=== PATIENT | male | born 1955 ===

== ENCOUNTER 2022-04-20 14:18 | Inpatient (IN) | payer MEDICARE ==
[~2022-04-20] VITALS: Ht 182.9 cm; Wt 99.3 kg
[2022-04-20] MEDS ORDERED: ACETAMINOPHEN 325 MG TABLET PO PRN (14:30)
[2022-04-20] MEDS ORDERED: MAGNESIUM HYDROXIDE 30 ML LIQUID UDC PO PRN (14:30)
--- NOTE | 2022-04-20 14:48 | NUR ---
Admission Note: Admitted a case of 67 years old male from [facility] with history of COPD, GERD, Overactive bladder, Anxiety, Osteoarthritis. Patient is on 5150 status hold. Patient arrived in a stretcher accompanied by EMT. Initial report given by Yessica ADAN. On admission patient was cooperative to physical assessment and vital signs. Skin body revealed no significant skin breakdown. Patient ambulates without assistance. Upon face to face patient appeared alert, oriented to person and place, anxious, demanding. Patient denies any suicidal or homicidal ideations nor any hallucinations or delusions at this moment. Patient was offered brief orientation to unit rules and policies and given copy of patient's rights handbook. Patient belongings were accounted and contrabands removed. Psychiatrist Dr. Henson and Medical physician Juarez were informed and orders were carried out. Patient is encourage to verbalize concerns. Fall and safety precautions implemented.
[2022-04-20] MEDS ORDERED: BLOOD SUGAR DIAGNOSTIC 1 EACH STRIP VI ONE (15:30)
[2022-04-20] MEDS ORDERED: CLON0.5T4 PO (15:37)
[2022-04-20] MEDS ORDERED: ACET-2154 PO (15:37)
[2022-04-20] MEDS ORDERED: OLAN20TA3 PO (15:37)
[2022-04-20] MEDS ORDERED: MELA3TAB41 PO (15:37)
[2022-04-20] MEDS ORDERED: ZOLP5TAB8 PO (15:37)
[2022-04-20] MEDS ORDERED: DIVA500T2 PO (15:37)
[2022-04-20] MEDS ORDERED: MAGN400O6 PO (15:37)
[2022-04-20] MEDS ORDERED: BISA10SU61 RC (15:37)
[2022-04-20] MEDS ORDERED: OLAN10TA3 PO (15:37)
[2022-04-20] MEDS ORDERED: LITH300C2 PO (15:37)
[2022-04-20] MEDS ORDERED: PANT40TA2 PO (15:37)
[2022-04-20] MEDS ORDERED: VITA1TAB20 PO (15:37)
[2022-04-20] MEDS ORDERED: BACL10TA PO (15:37)
[2022-04-20] MEDS ORDERED: LORA2TAB95 PO (15:37)
[2022-04-20 15:57] VITALS: BP 128/99
[2022-04-20 20:12] VITALS: BP 132/90
--- NOTE | 2022-04-20 20:55 | NUR ---
GPS: Received patient lying in bed. alert and oriented ambulatory. calm and cooperative. no agitation noted. compliant with medication. continue plan of care.
[2022-04-20] MEDS: ZOLPIDEM 5 MG TABLET PO PRN (21:53)
--- NOTE | 2022-04-21 00:36 | NUR ---
patient is calm now. prn effective for anxiety.
--- NOTE | 2022-04-21 06:27 | NUR ---
GPS: Remain calm and cooperative with meds and care. slept 6.30 hrs through the night after took sleeping meds. resting in bed comfortably. no agitation noted. continue plan of care.
[2022-04-21 07:30] VITALS: BP 122/87
[2022-04-21 09:58] LABS: HEMATOCRIT 43.9 % (36.7-47.1); MEAN CORPUSCULAR HEMOGLOBIN 30.6 uug (23.8-33.4); MEAN CORPUSCULAR VOLUME 91.3 fL (73.0-96.2); PLATELET COUNT (AUTO) 292 K/uL (152-348)
[2022-04-21] MEDS ORDERED: MAGNESIUM HYDROXIDE 30 ML LIQUID UDC PO PRN (10:45)
[2022-04-21] MEDS ORDERED: BISACODYL 10 MG SUPP.RECT RC PRN (10:45)
[2022-04-21 12:18] LABS: POTASSIUM 4.6 mmol/L (3.5-5.1)
[2022-04-21] MEDS: ACETAMINOPHEN 325 MG TABLET PO PRN ×2 (12:57→18:59)
--- NOTE | 2022-04-21 13:30 | NUR ---
KAYLA initial discharge note: Patient currently resides at [facility] [id number] ([phone]). Patient states that he would want to return to [facility] [id number] ([phone]) at discharge. KAYLA will work with patient and MD to ensure a safe and proper discharge plan.
--- NOTE | 2022-04-21 13:44 | NUR ---
Firearms Report: Forestry Technician completed and submitted a [employer] firearms report for 5150 danger to self certifications. A copy of report has been placed in patient chart.
[2022-04-21 15:24] VITALS: BP 115/80
[2022-04-21] MEDS: DIVALPROEX ER 250 MG TAB.SR.24H PO SCH (16:43)
[2022-04-21] MEDS: CLONAZEPAM 0.5 MG TABLET PO SCH (16:43)
[2022-04-21] MEDS: DIVALPROEX ER 500 MG TAB.SR.24H PO SCH (20:13)
[2022-04-21] MEDS: OLANZAPINE 5 MG TABLET PO SCH (20:13)
[2022-04-21 20:18] VITALS: BP 110/64
--- NOTE | 2022-04-21 21:00 | NUR ---
GPS: Received Patient alert and oriented x4,ambulatory.patient is in depressed mood and sad affect, needs prompting to participate in therapeutic groups, forgetful at times, low energy level, assisted with ADL's, denies SI @ this time. patient unable to formulate a viable plan for self care, compliant with meds. continue to monitor for safety, continue with treatment plan.
[2022-04-21] MEDS: ZOLPIDEM 5 MG TABLET PO PRN (21:33)
[2022-04-21] MEDS: LORAZEPAM 1 MG TABLET PO PRN (23:35)
--- NOTE | 2022-04-21 23:36 | NUR ---
patient c/o anxiety ativan 1 mg po given.
--- NOTE | 2022-04-22 00:36 | NUR ---
patient is calm now. prn for anxiety effective.
--- NOTE | 2022-04-22 05:45 | NUR ---
GPS: Remain calm and cooperative with meds and care. resting in bed comfortably. no agitation noted. continue plan of care
[2022-04-22] MEDS: PANTOPRAZOLE SODIUM 40 MG TABLET.DR PO SCH (06:05)
--- NOTE | 2022-04-22 06:22 | NUR ---
GPS: slept 3.45 hrs through the night.
[2022-04-22 07:30] VITALS: BP 99/60
[2022-04-22] MEDS: OLANZAPINE 5 MG TABLET PO SCH ×2 (08:30→20:09)
[2022-04-22] MEDS: DIVALPROEX ER 250 MG TAB.SR.24H PO SCH (08:30)
[2022-04-22] MEDS: CLONAZEPAM 0.5 MG TABLET PO SCH ×2 (08:30→16:59)
[2022-04-22] MEDS: VITAMIN B COMPLEX 1 TABLET PO SCH (08:31)
[2022-04-22] MEDS ORDERED: DIVALPROEX ER 250 MG TAB.SR.24H PO SCH (09:00)
[2022-04-22] MEDS: LORAZEPAM 1 MG TABLET PO PRN (11:23)
[2022-04-22] MEDS: MAG HYDROX/AL HYDROX/SIMETH 30 ML LIQUID UDC PO PRN (13:39)
--- NOTE | 2022-04-22 14:44 | NUR ---
Patient is calm, cooperative, sociable, likes to play astrid with peers, compliant with medications. Pt. denies SI. Patient is given Ativan 1 mg at 11:23 for anxiety, effective. Patient is given Maalox 30 ml at 13:39 for upset stomach, effective. Self care. Patient is encourage to verbalize concerns. Fall and safety precautions implemented.
[2022-04-22] MEDS: REMEDY ESSENTIAL ZINC PASTE 113 GM TOP SCH ×2 (15:30→20:10)
[2022-04-22 16:00] VITALS: BP 108/73
[2022-04-22] MEDS: ACETAMINOPHEN 325 MG TABLET PO PRN (16:59)
[2022-04-22 20:00] VITALS: BP 105/76
[2022-04-22] MEDS: DIVALPROEX ER 500 MG TAB.SR.24H PO SCH (20:09)
[2022-04-22] MEDS: ZOLPIDEM 5 MG TABLET PO PRN (21:32)
--- NOTE | 2022-04-22 23:00 | NUR ---
GPS: Received Patient alert and oriented x4,ambulating in the hallway. patient is in depressed mood and sad affect stated i am sad and i am unable to sleep. forgetful at times, low energy level, assisted with ADL's, denies SI @ this time. patient unable to formulate a viable plan for self care, compliant with meds. continue to monitor for safety, continue with treatment plan.
[2022-04-23] MEDS: ACETAMINOPHEN 325 MG TABLET PO PRN ×2 (00:29→14:26)
--- NOTE | 2022-04-23 00:29 | NUR ---
patient c/o gen: pain. tylenol 650 mg po given.
--- NOTE | 2022-04-23 01:00 | NUR ---
tylenol for mild pain effective, patient resting in bed comfortably.
--- NOTE | 2022-04-23 05:47 | NUR ---
remain calm and cooperative with meds and care. sleeping in bed comfortably. continue plan of care.
[2022-04-23] MEDS: PANTOPRAZOLE SODIUM 40 MG TABLET.DR PO SCH (06:02)
[2022-04-23 07:30] VITALS: BP 115/84
[2022-04-23] MEDS: VITAMIN B COMPLEX 1 TABLET PO SCH (08:34)
[2022-04-23] MEDS: DIVALPROEX ER 250 MG TAB.SR.24H PO SCH (08:34)
[2022-04-23] MEDS: CLONAZEPAM 0.5 MG TABLET PO SCH ×2 (08:34→16:54)
[2022-04-23] MEDS: OLANZAPINE 5 MG TABLET PO SCH ×2 (08:35→20:33)
[2022-04-23] MEDS: REMEDY ESSENTIAL ZINC PASTE 113 GM TOP SCH ×2 (08:35→20:35)
[2022-04-23] MEDS: LORAZEPAM 1 MG TABLET PO PRN ×2 (10:51→20:36)
[2022-04-23] MEDS: MAG HYDROX/AL HYDROX/SIMETH 30 ML LIQUID UDC PO PRN (11:27)
--- NOTE | 2022-04-23 15:41 | NUR ---
Received Patient is awake and responding x4, depressed mood and sad affect, needs prompting to participate in therapeutic groups, forgetful at times, low energy level, assisted with ADL's, denies SI.unable to formulate a viable plan for self care, continue to monitor for safety, continue with treatment plan.
[2022-04-23 16:00] VITALS: BP 109/73
[2022-04-23 20:14] VITALS: BP 116/76
[2022-04-23] MEDS: DIVALPROEX ER 500 MG TAB.SR.24H PO SCH (20:33)
[2022-04-23] MEDS: ZOLPIDEM 5 MG TABLET PO PRN (21:02)
[2022-04-24] MEDS: PANTOPRAZOLE SODIUM 40 MG TABLET.DR PO SCH (07:00)
[2022-04-24 07:30] VITALS: BP 112/71
[2022-04-24] MEDS: CLONAZEPAM 0.5 MG TABLET PO SCH ×2 (08:46→17:40)
[2022-04-24] MEDS: OLANZAPINE 5 MG TABLET PO SCH ×2 (08:46→20:32)
[2022-04-24] MEDS: DIVALPROEX ER 250 MG TAB.SR.24H PO SCH (08:46)
[2022-04-24] MEDS: VITAMIN B COMPLEX 1 TABLET PO SCH (08:48)
[2022-04-24] MEDS: REMEDY ESSENTIAL ZINC PASTE 113 GM TOP SCH ×2 (08:49→20:35)
[2022-04-24] MEDS: LORAZEPAM 1 MG TABLET PO PRN ×2 (10:56→23:12)
[2022-04-24] MEDS: ESCITALOPRAM OXALATE 10 MG TABLET PO SCH (10:56)
[2022-04-24] MEDS: GABAPENTIN 100 MG CAPSULE PO SCH ×3 (10:57→17:40)
[2022-04-24] MEDS: ACETAMINOPHEN 325 MG TABLET PO PRN (11:58)
[2022-04-24 15:38] VITALS: BP 100/59
[2022-04-24 20:11] VITALS: BP 100/70
[2022-04-24] MEDS: DIVALPROEX ER 500 MG TAB.SR.24H PO SCH (20:32)
[2022-04-24] MEDS: ZOLPIDEM 5 MG TABLET PO PRN (20:32)
[2022-04-25] MEDS: PANTOPRAZOLE SODIUM 40 MG TABLET.DR PO SCH (06:13)
[2022-04-25 07:30] VITALS: BP 112/75
[2022-04-25] MEDS ORDERED: ZOLPIDEM 5 MG TABLET PO PRN (09:15)
[2022-04-25] MEDS: GABAPENTIN 100 MG CAPSULE PO SCH ×3 (09:18→16:26)
[2022-04-25] MEDS: DIVALPROEX ER 250 MG TAB.SR.24H PO SCH (09:18)
[2022-04-25] MEDS: ESCITALOPRAM OXALATE 10 MG TABLET PO SCH (09:18)
[2022-04-25] MEDS: CLONAZEPAM 0.5 MG TABLET PO SCH ×2 (09:18→16:26)
[2022-04-25] MEDS: OLANZAPINE 5 MG TABLET PO SCH ×2 (09:18→20:12)
[2022-04-25] MEDS: VITAMIN B COMPLEX 1 TABLET PO SCH (09:19)
[2022-04-25] MEDS: REMEDY ESSENTIAL ZINC PASTE 113 GM TOP SCH ×2 (09:19→20:13)
--- NOTE | 2022-04-25 15:52 | NUR ---
Patient is isolative, calm, depressed, cooperative with nursing care and compliant with medications. A/O X 3 to person, place, situation. Self care. Pt. is encourage to verbalize concerns. Fall and safety precautions implemented.
[2022-04-25 16:53] VITALS: BP 132/93
[2022-04-25 20:05] VITALS: BP 103/68
[2022-04-25] MEDS: DIVALPROEX ER 500 MG TAB.SR.24H PO SCH (20:12)
[2022-04-25] MEDS: MELATONIN 3 MG TABLET PO SCH (20:12)
[2022-04-25] MEDS: LORAZEPAM 1 MG TABLET PO PRN (23:23)
--- NOTE | 2022-04-26 03:53 | NUR ---
GPS NOTES: Patient received awake, A&Ox3. Denies SI and contract safety w/ the headline writer. He is able to to make needs known. He is compliant w/ treatments and medications plans. He is complaining of trouble sleeping, PRN's medications ineffective. Offered non-pharmacological management to sleep, still ineffective. Frequent monitoring observed and safety strategies in place.
[2022-04-26] MEDS: ACETAMINOPHEN 325 MG TABLET PO PRN (04:37)
[2022-04-26] MEDS: PANTOPRAZOLE SODIUM 40 MG TABLET.DR PO SCH (06:18)
[2022-04-26 07:30] VITALS: BP 106/79
[2022-04-26] MEDS: VITAMIN B COMPLEX 1 TABLET PO SCH (09:00)
[2022-04-26] MEDS: DIVALPROEX ER 250 MG TAB.SR.24H PO SCH (09:23)
[2022-04-26] MEDS: CLONAZEPAM 0.5 MG TABLET PO SCH ×2 (09:23→16:02)
[2022-04-26] MEDS: GABAPENTIN 100 MG CAPSULE PO SCH ×3 (09:23→16:02)
[2022-04-26] MEDS: ESCITALOPRAM OXALATE 10 MG TABLET PO SCH (09:23)
[2022-04-26] MEDS: REMEDY ESSENTIAL ZINC PASTE 113 GM TOP SCH ×2 (09:24→21:19)
[2022-04-26] MEDS: OLANZAPINE 5 MG TABLET PO SCH ×2 (09:24→20:18)
[2022-04-26 16:00] VITALS: BP 105/69
[2022-04-26] MEDS: HYDROXYZINE PAMOATE 25 MG CAPSULE PO PRN ×2 (16:02→22:15)
--- NOTE | 2022-04-26 17:56 | NUR ---
Pt was compliant and responding appropriately when spoken to. Is needy and attention seeking at times. Set boundaries.
[2022-04-26] MEDS: DIVALPROEX ER 500 MG TAB.SR.24H PO SCH (20:18)
[2022-04-26] MEDS: MELATONIN 3 MG TABLET PO SCH (20:18)
[2022-04-26] MEDS ORDERED: AMITRIPTYLINE HCL 50 MG TABLET PO SCH (21:00)
--- NOTE | 2022-04-26 21:00 | NUR ---
RECEIVED PATIENT IN THE DAYROOM PLAYING CRISTINA WITH OTHER CLIENTS. HE IS NOTED A/O X 3 ABLE TO VERBALIZED HIS FEELINGS. PATIENT IS NOTED SARCASTIC AT TIMES, HYPERVERBAL AND ATTENTION SEEKER. HE DENIED SI/HI/AH/VH. HE IS ABLE TO CONTRACT FOR SAFETY. HE IS ABLE TO COMPLY WITH HIS MEDICATION REGIMENT DIET AND CARE. HE IS REASSURED FOR HIS SAFETY. HIS V/S ARE STABLE, HE IS IN NO DISTRESS. PO FLUIDS AND SNACKS WERE GIVEN. WILL CONTINUE TO MONITOR.
[2022-04-26 21:07] VITALS: BP 110/65
[2022-04-27] MEDS: ACETAMINOPHEN 325 MG TABLET PO PRN (01:05)
[2022-04-27] MEDS: PANTOPRAZOLE SODIUM 40 MG TABLET.DR PO SCH (06:28)
[2022-04-27 07:30] VITALS: BP 113/62
[2022-04-27] MEDS: GABAPENTIN 100 MG CAPSULE PO SCH ×3 (08:32→16:51)
[2022-04-27] MEDS: VITAMIN B COMPLEX 1 TABLET PO SCH (08:32)
[2022-04-27] MEDS: CLONAZEPAM 0.5 MG TABLET PO SCH ×2 (08:32→16:51)
[2022-04-27] MEDS: OLANZAPINE 5 MG TABLET PO SCH ×2 (08:32→20:25)
[2022-04-27] MEDS: DIVALPROEX ER 250 MG TAB.SR.24H PO SCH (08:32)
[2022-04-27] MEDS: ESCITALOPRAM OXALATE 10 MG TABLET PO SCH (08:35)
[2022-04-27] MEDS: REMEDY ESSENTIAL ZINC PASTE 113 GM TOP SCH ×2 (08:37→20:27)
[2022-04-27] MEDS: HYDROXYZINE PAMOATE 25 MG CAPSULE PO PRN ×2 (12:48→22:41)
--- NOTE | 2022-04-27 12:50 | NUR ---
Vistaril 25 mg is given at 12:48 for anxiety, will be monitored for effectiveness.
--- NOTE | 2022-04-27 16:00 | NUR ---
Patient is cooperative, talkative, sociable, compliant with medications. A/O X 4 to person, place, situation. Self care. Denies SI. Pt. is encourage to verbalize concerns. Fall and safety precautions implemented.
[2022-04-27 16:27] VITALS: BP 106/77
[2022-04-27] MEDS: AMITRIPTYLINE HCL 50 MG TABLET PO SCH (20:25)
[2022-04-27] MEDS: DIVALPROEX ER 500 MG TAB.SR.24H PO SCH (20:26)
[2022-04-27 20:27] VITALS: BP 99/63
[2022-04-27] MEDS: MELATONIN 3 MG TABLET PO SCH (20:27)
--- NOTE | 2022-04-27 21:00 | NUR ---
RECEIVED PATIENT IN HUS ROOM PLAYING SITTING IN HIS BED. HE IS NOTED A/O X 3 ABLE TO VERBALIZED HIS FEELINGS. PATIENT CONTINUE HYPERVERBAL AND ATTENTION SEEKER. HE DENIED SI/HI/AH/VH. HE STATED, "I TOLD YOU I WAS NEVER SUICIDAL. I DON'T WANT TO HURT ANYONE". HE IS ABLE TO CONTRACT FOR SAFETY. HE IS ABLE TO COMPLY WITH HIS MEDICATION REGIMENT DIET AND CARE. HE IS REASSURED FOR HIS SAFETY. SAFETY AND FALL PRECAUTIONS ARE IN PLACE. HIS V/S ARE STABLE, HE IS IN NO DISTRESS. PO FLUIDS AND SNACKS WERE GIVEN. WILL CONTINUE TO MONITOR.
--- NOTE | 2022-04-28 00:05 | NUR ---
PATIENT CAME TO THE NURSING STATION. HE STATED, "I STILL CAN'T SLEEP". HE REQUESTED TO GO TO THE DAY ROOM AND WATCH TV. PATIENT WAS DISCOARED FROM GOING TO THE DAY ROOM AND OR WATCH TV THIS WILL PROMOTE TO STAY AWAKE. HE WAS TOLD TO STAY IN HIS ROOM IN BED AND CONTINUE TO TRY TO FALL ASLEEP. PATIENT NOTED IRRITABLE AND SARCASTIC BUT AGREED TO DO THAT. WILL CONTINUE TO MONITOR.
--- NOTE | 2022-04-28 06:06 | NUR ---
Patient slept for approx 4.5 hrs through the night. He continue denying SI. he is able to verbally CFS.
[2022-04-28] MEDS: PANTOPRAZOLE SODIUM 40 MG TABLET.DR PO SCH (06:45)
[2022-04-28 07:30] VITALS: BP 124/92
[2022-04-28] MEDS: CLONAZEPAM 0.5 MG TABLET PO SCH ×2 (08:25→16:54)
[2022-04-28] MEDS: ESCITALOPRAM OXALATE 10 MG TABLET PO SCH (08:25)
[2022-04-28] MEDS: VITAMIN B COMPLEX 1 TABLET PO SCH (08:25)
[2022-04-28] MEDS: DIVALPROEX ER 250 MG TAB.SR.24H PO SCH (08:25)
[2022-04-28] MEDS: GABAPENTIN 100 MG CAPSULE PO SCH ×3 (08:25→16:54)
[2022-04-28] MEDS: OLANZAPINE 5 MG TABLET PO SCH ×2 (08:25→21:06)
[2022-04-28] MEDS: REMEDY ESSENTIAL ZINC PASTE 113 GM TOP SCH ×2 (08:26→21:07)
[2022-04-28] MEDS: HYDROXYZINE PAMOATE 25 MG CAPSULE PO PRN (14:22)
--- NOTE | 2022-04-28 14:33 | NUR ---
Patient is cooperative, restless, compliant with medications. A/O X 4 to person, place, environment. Vistaril 25 mg is given at 14:22 for anxiety, will be monitored for effectiveness. Active listening provided. Fall and safety precautions implemented.
--- NOTE | 2022-04-28 15:47 | NUR ---
KAYLA Discharge Plan: Pt will be discharged to [facility] located at [address] [place] [id number] ([phone]) via Ambulance transportation at 11AM. KAYLA spoke with admin coordinator, Alley at the facility who states they are ready to accept the patient today. Pt is aware and agreeable with discharge plan. Pt does not have a automotive salesperson at this time. Pt is alert and oriented x4, is unable to plan for self-care at this time. However, pt is willing to accept care at his returning SNF. Pt denies any suicidal or homicidal ideation. Pt will follow-up at the facility with Psychiatrist, Dr. Henson ([phone]) and Roll Handler, Dr. Velasco. Pt presents with calm mood and congruent affect. PHARMACY: [facility] ([phone]) [id number] [facility] [address].
[2022-04-28 16:51] VITALS: BP 104/72
[2022-04-28] MEDS: ACETAMINOPHEN 325 MG TABLET PO PRN (16:54)
--- NOTE | 2022-04-28 16:55 | NUR ---
Tylenol 650 mg is given at 16:54, will be monitored for effectiveness.
[2022-04-28 19:50] VITALS: BP 118/70
[2022-04-28] MEDS: MELATONIN 3 MG TABLET PO SCH (21:06)
[2022-04-28] MEDS: DIVALPROEX ER 500 MG TAB.SR.24H PO SCH (21:06)
[2022-04-28] MEDS: AMITRIPTYLINE HCL 50 MG TABLET PO SCH (21:06)
--- NOTE | 2022-04-28 22:01 | NUR ---
received patient in his room in bed sleeping but easily arousable. He is noted A/o x 3 calm and pleasant upon approached. He is able to verbalized his feelings, he denied SI/HI/VH/AH. he is able to verbally CFS. He is aware and agreeable with his impending discharged tomorrow morning. His V/S are stable, he is in no distress, patient was given PO fluids and snacks. Safety and fall precautions are in place. he is reassured for his safety. will continue to monitor.
[2022-04-29] MEDS: PANTOPRAZOLE SODIUM 40 MG TABLET.DR PO SCH (06:41)
--- NOTE | 2022-04-29 07:01 | NUR ---
Patient slept for approx 3 hrs through the night. He is aware and agreeable with his discharge. will continue to monitor.
[2022-04-29 07:47] VITALS: BP 94/63
[2022-04-29] MEDS: ESCITALOPRAM OXALATE 10 MG TABLET PO SCH (08:25)
[2022-04-29] MEDS: GABAPENTIN 100 MG CAPSULE PO SCH (08:25)
[2022-04-29] MEDS: VITAMIN B COMPLEX 1 TABLET PO SCH (08:25)
[2022-04-29] MEDS: OLANZAPINE 5 MG TABLET PO SCH (08:25)
[2022-04-29] MEDS: CLONAZEPAM 0.5 MG TABLET PO SCH (08:25)
[2022-04-29] MEDS: DIVALPROEX ER 250 MG TAB.SR.24H PO SCH (08:25)
[2022-04-29] MEDS: REMEDY ESSENTIAL ZINC PASTE 113 GM TOP SCH (08:26)
--- NOTE | 2022-04-29 11:20 | NUR ---
Received orders to discharge this patient to [facility] by [facility]. Patient denies SI/HI AH/VH, SOB, pain or any discomfort. Patient is A/O X 4 to person, place situation. Patient is cooperative with care, compliant with medications. Patient was agreeable with discharge plans and signed all discharge documentation. Patient did not have any belongings. Emotional support provided. Fall and safety precautions implemented.
== END 2022-04-29 11:25 | DRG 885 ==
LOC: GPS 14:18
PROVIDERS: ADMIT Psychiatry & Neurology Psychiatry; ATTEND Nurse Practitioner Acute Care
DX: F31.5 Bipolar disorder, current episode depressed, severe, with psychotic features (principal); J44.9 Chronic obstructive pulmonary disease, unspecified; Z73.6 Limitation of activities due to disability; F41.9 Anxiety disorder, unspecified; K21.9 Gastro-esophageal reflux disease without esophagitis; M19.90 Unspecified osteoarthritis, unspecified site; Z85.46 Personal history of malignant neoplasm of prostate; Z20.822 Contact with and (suspected) exposure to COVID-19; Z90.79 Acquired absence of other genital organ(s)
CPT/HCPCS: 36415; 80164; 85025; 93005; A4663